=== PATIENT | male | born 1930 | race Caucasian/White ===

== ENCOUNTER 2017-03-30 01:52 | Emergency (ER) | payer MEDICARE, BC ==
[2017-03-30 02:10] LABS: BASOPHILS 0.3 % (0-2); EOSINOPHILS 0.6 % (0-7); HEMATOCRIT 40.7 % (42.0-54.0); HEMOGLOBIN 14.3 g/dL (13.5-17.5); IMMATURE GRANULOCYTES 0.1 % (0-5); LYMPHOCYTES 30.6 % (15-50); MCH 31.8 pg (26.0-34.0); MCHC 35.1 g/dL (31.0-37.0); MCV 90.4 fL (80.0-100.0); MEAN PLATELET VOLUME 9.6 fL (7.4-10.4); MONOCYTES 10.9 % (2-11); NEUTROPHILS 57.5 % (40-80); PLATELET COUNT 247 10x3/uL (130-400); RDW 11.8 % (11.5-14.5); WBC 7.1 10x3/uL (4.8-10.8)
[2017-03-30 02:32] LABS: ALBUMIN 3.7 g/dL (3.4-5.0); ALKALINE PHOSPHATASE 93 U/L (46-116); ALT (SGPT) 27 U/L (10-68); BILIRUBIN - TOTAL 0.51 mg/dL (0.2-1.3); CALC OSMOLALITY 274 mosm/kg (275-300); CALCIUM 8.7 mg/dL (8.5-10.1); CARBON DIOXIDE 24.8 mmol/L (21.0-32.0); CHLORIDE - SERUM 101 mmol/L (98-107); CREATININE - SERUM 1.1 mg/dL (0.6-1.3); GLUCOSE 110 mg/dL (74-106); POTASSIUM - SERUM 3.9 mmol/L (3.5-5.1); PROTEIN - SERUM 6.8 g/dL (6.4-8.2); SODIUM 136 mmol/L (136-145); UREA NITROGEN 17 mg/dL (7-18); eGFR NON AFRICAN AMERICAN 68 mL/min (90-120)
[2017-03-30 02:43] LABS: CHOL - HDL RATIO 2.8 ratio (2.3-4.9); CHOLESTEROL, TOTAL 155 mg/dL (0-200); CKMB 0.9 U/L (0.0-3.6); CREATINE KINASE 105 UL (21-232); HDL CHOLESTEROL 55 mg/dL (32-96); LDL CHOLESTEROL 79 mg/dL (0-100); LDL-HDL RATIO 1.4 ratio (1.5-3.5); MAGNESIUM - SERUM 2.1 mg/dL (1.8-2.4); PRO BNP 409 pg/mL (0-450); TRIGLYCERIDE 105 mg/dL (30-200); TROPONIN-I < 0.017 ng/mL (0.000-0.060)
== END 2017-03-30 04:28 | disposition home or self-care (01) ==
LOC: D.ER 01:52
PROVIDERS: Emergency Medicine
DX: R07.9 Chest pain, unspecified (principal); I49.3 Ventricular premature depolarization; Z85.46 Personal history of malignant neoplasm of prostate

== ENCOUNTER 2017-06-30 21:27 | Observation (INO) | payer MEDICARE, BC ==
[~2017-06-30] VITALS: Ht 172.7 cm; Wt 81.6 kg
[2017-06-30 22:25] LABS: BASOPHILS 0.1 % (0-2); EOSINOPHILS 1.4 % (0-7); HEMATOCRIT 39.5 % (42.0-54.0); HEMOGLOBIN 14.6 g/dL (13.5-17.5); IMMATURE GRANULOCYTES 0.1 % (0-5); LYMPHOCYTES 17.1 % (15-50); MCH 32.2 pg (26.0-34.0); MONOCYTES 10.5 % (2-11); NEUTROPHILS 70.8 % (40-80); PLATELET COUNT 291 10x3/uL (130-400); RBC 4.54 10x6/uL (4.20-6.10); RDW 11.9 % (11.5-14.5); WBC 8.7 10x3/uL (4.8-10.8)
[2017-06-30 22:48] LABS: ALBUMIN 3.5 g/dL (3.4-5.0); ALKALINE PHOSPHATASE 87 U/L (46-116); ALT (SGPT) 33 U/L (10-68); BILIRUBIN - TOTAL 0.83 mg/dL (0.2-1.3); CALC OSMOLALITY 258 mosm/kg (275-300); CARBON DIOXIDE 23.7 mmol/L (21.0-32.0); CHLORIDE - SERUM 91 mmol/L (98-107); CREATININE - SERUM 0.9 mg/dL (0.6-1.3); GLUCOSE 139 mg/dL (74-106); POTASSIUM - SERUM 3.3 mmol/L (3.5-5.1); PROTEIN - SERUM 6.6 g/dL (6.4-8.2); SODIUM 127 mmol/L (136-145); UREA NITROGEN 17 mg/dL (7-18); eGFR NON AFRICAN AMERICAN 85 mL/min (90-120)
[2017-06-30 23:09] LABS: CHOL - HDL RATIO 2.4 ratio (2.3-4.9); CHOLESTEROL, TOTAL 138 mg/dL (0-200); CKMB 0.8 U/L (0.0-3.6); CREATINE KINASE 98 UL (21-232); HDL CHOLESTEROL 58 mg/dL (32-96); LDL CHOLESTEROL 24 mg/dL (0-100); LDL-HDL RATIO 0.4 ratio (1.5-3.5); TRIGLYCERIDE 280 mg/dL (30-200)
[2017-06-30 23:13] LABS: TROPONIN-I < 0.017 ng/mL (0.000-0.060)
[2017-07-01 05:14] LABS: CREATINE KINASE 80 UL (21-232)
[2017-07-01 05:19] LABS: TROPONIN-I < 0.017 ng/mL (0.000-0.060)
[2017-07-01 08:33] VITALS: BMI 27.4
[2017-07-01] MEDS ORDERED: ZESTRIL20 MG PO (10:37)
[2017-07-01] MEDS ORDERED: HYDROCHLOROTH12.5 M1 PO (10:37)
[2017-07-01] MEDS ORDERED: FLOMAX0.4 MG PO (10:38)
[2017-07-01] MEDS ORDERED: BAYER CHEWABLE81 MG PO (10:38)
[2017-07-01] MEDS ORDERED: PLAVIX75 MG PO (10:38)
[2017-07-01] MEDS ORDERED: ZIAC 5-6.25 MG1 TAB PO (10:39)
[2017-07-01] MEDS ORDERED: LIPITOR40 MG PO (10:39)
[2017-07-01] MEDS ORDERED: ZESTRIL40 MG PO (10:47)
[2017-07-01] MEDS ORDERED: ATIVAN0.5 MG PO (10:47)
[2017-07-01 11:38] LABS: CKMB 0.9 U/L (0.0-3.6); CREATINE KINASE 88 UL (21-232); TROPONIN-I < 0.017 ng/mL (0.000-0.060)
[2017-07-01 12:37] VITALS: BMI 27.3
[2017-07-01 14:21] VITALS: Ht 172.7 cm; Wt 81.6 kg
[2017-07-01] MEDS ORDERED: ZEBETA5 MG PO (14:21)
== END 2017-07-01 14:42 | disposition home or self-care (01) ==
LOC: D.ER 21:27 → D.EDHOLD 23:55 → OBSVTIME 23:55 → D.MS 07-01 05:44
PROVIDERS: Emergency Medicine
DX: R07.89 Other chest pain (principal); E87.1 Hypo-osmolality and hyponatremia; E87.6 Hypokalemia; Z95.2 Presence of prosthetic heart valve